=== PATIENT | male | born 1955 | race Hispanic/Latino ===

== ENCOUNTER → 2022-10-06 | Outpatient (CLI) | payer OTHER | END | disposition home or self-care (01) | LOC: SHCH 07:36 | PROVIDERS: ATTEND Internal Medicine Cardiovascular Disease | DX: I08.3 Combined rheumatic disorders of mitral, aortic and tricuspid valves (principal); I11.9 Hypertensive heart disease without heart failure; E78.5 Hyperlipidemia, unspecified | CPT/HCPCS: 93306 ==

== ENCOUNTER → 2022-10-10 | Outpatient (CLI) | payer OTHER ==
[~2022-10-10] MED LIST: REGADENOSON 0.4 MG/5 ML PF SYG IVP SCH
== END | disposition home or self-care (01) ==
LOC: SHCH 08:16
PROVIDERS: ATTEND Internal Medicine Cardiovascular Disease
DX: R07.9 Chest pain, unspecified (principal)
CPT/HCPCS: 78452; 96374; 93017; J2785; A9500 ×2

== ENCOUNTER → 2024-01-25 | Outpatient (CLI) | payer OTHER | END | disposition home or self-care (01) | LOC: SHCH 13:33 | PROVIDERS: ATTEND Internal Medicine Cardiovascular Disease | DX: I08.2 Rheumatic disorders of both aortic and tricuspid valves (principal) | CPT/HCPCS: 93306 ==

== ENCOUNTER → 2024-07-10 | Outpatient (CLI) | payer OTHER ==
[2024-07-10 12:28] LABS: CREATININE 1.1 mg/dL (0.5-1.3)
== END | disposition home or self-care (01) ==
LOC: LAB 08:15
PROVIDERS: ATTEND Internal Medicine Cardiovascular Disease
DX: R07.9 Chest pain, unspecified (principal)
CPT/HCPCS: 36415; 80048

== ENCOUNTER 2024-08-15 05:31 | Day surgery (SDC) | payer OTHER ==
[2024-08-13 09:48] VITALS: BP 164/82; PULSE 61; RESP 18; TEMP 97.8
[2024-08-13 09:52] LABS: BASOPHILS # (AUTO) 0.03 K/uL (0.00-0.20); BASOPHILS % (AUTO) 0.6 % (0.0-5.0); EOSINOPHILS # (AUTO) 0.18 K/uL (0.00-0.70); EOSINOPHILS % (AUTO) 3.5 % (0.0-8.0); HEMATOCRIT 41.3 % (42-54); IMMATURE GRANULOCYTE ABSOLUTE 0.02 K/uL (0-1); LYMPHOCYTES # (AUTO) 1.6 K/uL (1.0-4.8); LYMPHOCYTES % (AUTO) 31.3 % (21.0-51.0); MEAN CORPUSCULAR HEMOGLOBIN 31.8 pg (27.0-33.0); MEAN CORPUSCULAR HGB CONC 33.7 g/dL (32.0-36.0); MEAN CORPUSCULAR VOLUME 94.5 fL (79-99); MONOCYTES # (AUTO) 0.5 K/uL (0.1-1.0); MONOCYTES % (AUTO) 10.2 % (3.0-13.0); NEUTROPHILS # (AUTO) 2.8 K/uL (1.8-7.7); PLATELET COUNT (AUTO) 154 K/uL (130-400); RED BLOOD CELL COUNT(AUTO) 4.37 MIL/uL (4.50-6.20); RED CELL DISTRIBUTION WIDTH 12.4 % (11.0-15.5); WHITE BLOOD COUNT (AUTO) 5.1 K/uL (4.8-10.8)
--- NOTE | 2024-08-13 09:54 | EKG ---
[facility] Test Date: 2024-08-13 Test Time: 10:31:54 Pat Name: NANDA LYNCH Department: [facility] Room: Gender: M Employee Training Specialist: [id number] : 1955 Requested By: PAVAN HARPER Order Number: [id number] Reading MD: Edgar Galdamez Measurements Intervals [place] Rate: 64 P: 7 IL: 203 QRS: 6 QRSD: 93 T: 38 QT: 417 QTc: 431 Interpretive Statements Sinus rhythm No previous ECG available for comparison Electronically Signed On 08-13-2024 20:56:06 IT SENIOR SOFTWARE ENGINEER JAVA by Edgar Galdamez Please click the below link to view image of tracing.
[2024-08-13 10:05] LABS: CREATININE 1.1 mg/dL (0.5-1.3); POTASSIUM 4.5 mmol/L (3.5-5.1)
[2024-08-13 10:19] LABS: INR 0.97 (0.85-1.15); PROTHROMBIN TIME 10.9 SEC (9.6-11.6)
[2024-08-13 10:20] LABS: PARTIAL THROMBOPLASTIN TIME 24.5 SEC (26.3-35.5)
[2024-08-13 10:34] LABS: B-TYPE NATRIURETIC PEPTIDE 93 pg/mL (0-100)
--- NOTE | 2024-08-13 12:45 | HMCIMG ---
CHEST 1VW HISTORY: Preop COMPARISON: None FINDINGS: A frontal projection of the chest was obtained. No acute pulmonary infiltrates is seen. The heart is enlarged. Degenerative changes are seen. No evidence of aortic calcification is seen. IMPRESSION: 1. No acute pulmonary infiltrate is seen.
--- NOTE | 2024-08-13 14:02 | NUR ---
CLARIFY ACCORDING TO PT DIONISIO PALACIO [employer]AVER WAS GOING TO CALL IN SCRIPT FOR NITRO. INFORMED DIONISIO AND SHE WILL CALL IN TO PTS PHARMACY. PT NOTIFIED
[2024-08-15] VITALS (11 sets, daily range): BP systolic 139–205; BP diastolic 60–89; PULSE 54–68; RESP 12–20; TEMP 96.8–97.4
[~2024-08-15] VITALS: Ht 170.2 cm; Wt 109.2 kg
[~2024-08-15 05:31] MED LIST changes: +ASPI-1443 PO; +ATOR20TA65 PO; +METO-408 PO; +NAPR220C15 PO; +OLME20TA68 PO; +PANT40TA54 PO; +RANO500T6 PO; -REGADENOSON 0.4 MG/5 ML PF SYG IVP SCH
[2024-08-15] MEDS: 0.9%NACL 1000ML 1,000 ML IV SCH (06:30)
[2024-08-15] MEDS ORDERED: NITR0.4T50 SL (06:32)
[2024-08-15] MEDS ORDERED: HEParin 10,000 UNIT/10ML (1,000 UNIT/ML) VIAL ONE (07:08)
[2024-08-15] MEDS ORDERED: IOHEXOL 350 MG/ML 100ML INFUS..BTL IV ONE (07:08)
[2024-08-15] MEDS ORDERED: VERAPAMIL HCL 2.5 MG/ML VIAL ONE (07:08)
[2024-08-15] MEDS ORDERED: HEParin-NS 1,000 UNIT/500 ML 1,000 ML IV ONE (07:08)
[2024-08-15] MEDS ORDERED: NITROGLYCERIN 50MG VIAL ONE (07:08)
[2024-08-15] MEDS ORDERED: LIDOCAINE HCL 400MG/20ML VIAL ONE (07:08)
[2024-08-15] MEDS ORDERED: MIDAZOLAM HCL 1 MG/ML 2ML VIAL ONE (07:13)
[2024-08-15] MEDS ORDERED: FENTanyl CITRate PF 50 MCG/1 ML 2ML VIAL ONE (07:13)
[2024-08-15] MEDS ORDERED: niCARDIpine 25MG INJ IV ONE (07:22)
[2024-08-15] MEDS ORDERED: 0.9%NACL 1000ML 1,000 ML IV SCH (09:00)
[2024-08-15] MEDS ORDERED: DEXTROSE 50%-WATER 50 ML DISP.SYRIN IV PRN (09:00)
[2024-08-15] MEDS ORDERED: GLUCAGON 1MG KIT 1 MG ML IM PRN (09:00)
--- NOTE | 2024-08-15 09:03 | PRN ---
PROCEDURE NOTE Indications: 1. Chest pain, CCS II symptoms 2. Abnormal CTA of the coronary arteries done on 07/18/2024 3. Normal left ventricle systolic function (LVEF 55-60%) 4. Mild aortic stenosis by echocardiogram done on 01/25/2024 5. Moderate aortic regurgitation by echocardiogram done on 01/25/2024 Procedures: Coronary angiogram Introduction: After informed written consent was obtained, the patient was brought to the Catheterization Lab in the usual fasting state. Following sterile prep and drape, a time out was performed, then moderate sedation was administered, 1mg of Versed and 50mcg of Fentanyl, then 1% Lidocaine was infiltrated into the right wrist. Using a Modified Seldinger technique, a 6Fr Sheath was inserted into the right radial artery. While under fluoroscopic guidance, diagnostic coronary catheters were advanced over a wire into the central circulation where they were aspirated, flushed and placed to pressure monitoring, once the wire was removed. Coronary Angio: The left and right coronary arteries were engaged with appropriate catheters and angiography was performed under continuous pressure monitoring. Cardiac Findings: Right dominant system LM: Large caliber vessel with mild luminal irregularities. The vessel bifurcates into the LAD and LCX. LAD: Medium caliber vessel with diffuse 30% stenosis in the mid LAD. The rest of the vessel has mild luminal irregularities. Diagonal 1: Small caliber vessel with 30% stenosis in the ostial diagonal one. Diagonal 2: Small caliber vessel with mild luminal irregularities. LCX: Medium caliber vessel with 30% stenosis in the proximal LCX. The rest of the vessel has mild luminal irregularities. OM1: Small caliber vessel with mild luminal irregularities. OM2: Medium caliber vessel with 30% stenosis in the proximal OM2. RCA: Large caliber vessel with 20% stenosis in the proximal RCA. RPDA: Medium caliber vessel with 30% stenosis in the proximal RPDA. RPLV: Medium caliber vessel with 30% stenosis of the proximal RPLV. Medications given: Versed 2mg, Fentanyl 75mcg, nitroglycerin 400mcg, nicardipine 200mcg Coronary Intervention: None Complications: None Conscious Sedation Monitoring: Under my direct order and supervision, medication for moderate conscious sedation was administered by the nursing staff and the patients level of consciousness and physiological status was monitored by an independent trained nurse. Closure of Access Site: After the case completed the sheath was pulled and a TR band was applied to the right radial artery until hemostasis was achieved. Conclusion: 1. Non-obstructive CAD 2. Chest pain, CCS II symptoms (secondary to microvascular dysfunction versus noncardiac in origin) 3. False positive coronary CTA of the coronary arteries done on 07/18/2024 4. Normal left ventricle systolic function (LVEF 55-60%) 5. Mild aortic stenosis by echocardiogram done on 01/25/2024 6. Moderate aortic regurgitation by echocardiogram done on 01/25/2024 Recommendation: 1. Continue goal-directed medical therapy 2. 3 hours of bedrest. 3. Please enact TR band removal protocol. 4. Start NS at 100 mL/hour x2 hours. 5. Okay to DC once the TR band removal protocol has been complete and the right wrist is soft, and free of bruising, bleeding, and or hematoma formation. 6. No driving for the next 48 hours. 7. No heavy lifting or strenuous exercise for the next two weeks. 8. Please have the patient follow up with Dr. Bailey in 1-2 weeks. PAVAN BAILEY MD Aug 15, 2024 09:03
--- NOTE | 2024-08-15 10:25 | NUR ---
VASC BAND: VASC BAND REMOVED WITH NO ACTIVE BLEEDING PRESENT. CLEANSED AREA WITH CHLOR PREP FOLLOWED BY APPLYING STERILE 2X2 GAUZE THAN 2X2 TEGADERM. NO REDNESS/SWELLING NOTED TO SURROUNDING AREA RT WRIST.
== END 2024-08-15 11:20 | disposition home or self-care (01) ==
LOC: DAH 05:31
PROVIDERS: ATTEND Internal Medicine Cardiovascular Disease
DX: R07.9 Chest pain, unspecified (principal); I25.118 Atherosclerotic heart disease of native coronary artery with other forms of angina pectoris; R93.1 Abnormal findings on diagnostic imaging of heart and coronary circulation; R06.09 Other forms of dyspnea; I35.1 Nonrheumatic aortic (valve) insufficiency; I10 Essential (primary) hypertension; E78.5 Hyperlipidemia, unspecified; K21.9 Gastro-esophageal reflux disease without esophagitis; F10.10 Alcohol abuse, uncomplicated; Z79.01 Long term (current) use of anticoagulants; Z98.890 Other specified postprocedural states; Z86.16 Personal history of COVID-19; Z82.49 Family history of ischemic heart disease and other diseases of the circulatory system; Z83.3 Family history of diabetes mellitus; Z79.82 Long term (current) use of aspirin; Z79.899 Other long term (current) drug therapy
CPT/HCPCS: 80048; 83880; 85025; 85610; 85730; 36415; 71045; 93005; 93454; C1769; C1894; A4649; J3010; J3490 ×3; J7030; J1644 ×2; J2250; Q9967; A4215; A4222; A6260; A4221; A4663; A4216; A6206; A4606; Q9965; A4223 ×3; 96360; 96361; 99156; 99157